=== PATIENT | male | born 1990 | race Caucasian/White ===

== ENCOUNTER 2016-11-22 12:38 | Emergency (ER) | payer OTHER, MEDICAID ==
[~2016-11-22] VITALS: Ht 180.3 cm; Wt 62.5 kg
[2016-11-22 12:40] VITALS: BP 129/72; PULSE 76; RESP 16; TEMP 97.8; O2SAT 100
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
[2016-11-22] MEDS ORDERED: IBUPROFEN 800 MG TAB PO ONE (13:15)
[2016-11-22] MEDS ORDERED: IBUP800T23 PO (13:37)
--- NOTE | 2016-11-22 13:52 | RADRPT ---
EXAM DATE/TIME: 11/22/2016 13:12 [facility] COMPARISON: No previous studies available for comparison. INDICATIONS : Right ankle pain MEDICAL HISTORY : None. SURGICAL HISTORY : None. ENCOUNTER: Initial ACUITY: 1 day PAIN SCORE: 9/10 LOCATION: Right ankle FINDINGS: Three view exam was performed of the right ankle. The bony structures are in normal alignment. No e vidence of fracture, dislocation, or soft tissue swelling. The ankle mortise is intact. No radiopaq ue foreign bodies are seen. Bony mineralization is normal. CONCLUSION: Unremarkable examination of the right ankle. Liliam Palacios MD on November 22, 2016 at 13:50 Board Certified Radiologist. This report was verified electronically.
[2016-11-22] MEDS ORDERED: ROBA500T PO (14:00)
== END 2016-11-22 14:16 | disposition home or self-care (01) ==
LOC: NEPK 12:38
DX: S93.401A Sprain of unspecified ligament of right ankle, initial encounter (principal); V29.9XXA Motorcycle rider (driver) (passenger) injured in unspecified traffic accident, initial encounter
CPT/HCPCS: 73610; 99283